=== PATIENT | female | born 1995 | race Caucasian/White ===

== ENCOUNTER 2017-07-21 17:22 | Emergency (ER) | payer OTHER ==
[2017-07-21 17:22] VITALS: BMI 28.8
[2017-07-21 17:43] VITALS: O2SAT 100
[2017-07-21] MEDS ORDERED: Sodium Chloride 0.9% 1,000 ML IV ONE (18:31)
[2017-07-21 19:07] LABS: BASO % 0.4 % (0.0-2.0); EOS # 0.1 K/uL (0.0-0.7); EOS % 0.9 % (0.0-4.0); LYMPH # 2.9 K/uL (1.0-4.3); LYMPH % 28.4 % (20.0-40.0); MEAN CORPUSCULAR HEMOGLOBIN 30.3 pg (27.0-31.0); MEAN CORPUSCULAR HGB CONC 33.6 g/dL (33.0-37.0); MEAN PLATELET VOLUME 8.7 fL (7.2-11.7); MONO # 0.8 K/uL (0.0-0.8); MONO % 8.1 % (0.0-10.0); RED CELL DISTRIBUTION WIDTH 14.3 % (11.5-14.5)
[2017-07-21] MEDS ORDERED: Sodium Chloride 0.9% 1,000 ML ONE (19:10)
[2017-07-21 19:16] LABS: CHLORIDE 99 mmol/L (98-107); MEAN CELL VOLUME 90.2 fL (81.0-99.0); SODIUM 134 mmol/L (132-148); WHITE BLOOD COUNT 10.2 K/uL (4.8-10.8)
[2017-07-21 19:17] LABS: POTASSIUM 3.9 mmol/L (3.6-5.2)
[2017-07-21 19:18] LABS: GFR AFRICAN-AMERICAN > 60
[2017-07-21 19:19] LABS: ALB/GLOB RATIO 1.2 (1.0-2.1); ALKALINE PHOSPHATASE 70 U/L (38-126); ALT/SGPT 27 U/L (9-52); AST/SGOT 16 U/L (14-36); BILIRUBIN,TOTAL 0.4 mg/dL (0.2-1.3); BLOOD UREA NITROGEN 15 mg/dL (7-17); CARBON DIOXIDE 20 mmol/L (22-30); GLUCOSE,RANDOM 68 mg/dL (65-105); TOTAL PROTEIN 7.2 g/dL (6.3-8.3)
[2017-07-21 19:20] LABS: CALCIUM 10.3 mg/dl (8.6-10.4)
[2017-07-21 19:38] LABS: RBC URINE 4 /hpf (0-3); URINE BACTERIA FEW (<OCC); URINE BILIRUBIN NEGATIVE (NEGATIVE); URINE BLOOD NEGATIVE (NEGATIVE); URINE COLOR Yellow (YELLOW); URINE GLUCOSE (UA) NORMAL (Normal); URINE KETONE TRACE mg/dL (NEGATIVE); URINE LEUKOCYTE ESTERASE 3+ Leu/uL (Negative); URINE PROTEIN NEGATIVE (NEGATIVE); URINE UROBILINOGEN NORMAL mg/dL (0.2-1.0); WBC URINE 57 /hpf (0-5)
--- NOTE | 2017-07-21 22:37 | C.PDOC ---
Time Seen by Provider: 07/21/17 18:21 Chief Complaint (Nursing): Female Genitourinary History Per: Patient Onset/Duration Of Symptoms: Days Current Symptoms Are (Timing): Still Present Severity: Moderate Quality Of Discomfort: Cramping, "Pain" Alleviating Factors: None Additional History Per: Prior Records Abnormal Vaginal Bleeding: Yes Past Medical History Reviewed: Historical Data, Nursing Documentation, Vital Signs Vital Signs: Last Vital Signs Temp 97.8 F 07/21/17 21:16 Pulse 75 07/21/17 21:16 Resp 18 07/21/17 21:16 BP 107/62 07/21/17 21:16 Pulse Ox 100 07/21/17 21:16 - Medical History PMH: No Chronic Diseases - [facility] Procedures DELIVERY OF PRODUCTS OF CONCEPTION, EXTERNAL APPROACH (09/25/16) Family History: States: Unknown Family Hx - Social History Hx Tobacco Use: No Hx Alcohol Use: No Hx Substance Use: No - Immunization History Hx Tetanus Toxoid Vaccination: Yes Hx Influenza Vaccination: Yes Hx Pneumococcal Vaccination: Yes Review Of Systems Except As Marked, All Systems Reviewed And Found Negative. Constitutional: Positive for: Malaise. Negative for: Fever Cardiovascular: Negative for: Chest Pain Respiratory: Negative for: Shortness of Breath Gastrointestinal: Negative for: Vomiting Genitourinary: Positive for: Vaginal Bleeding Musculoskeletal: Negative for: Neck Pain Skin: Negative for: Rash Neurological: Negative for: Weakness, Numbness Physical Exam - Physical Exam Appears: Non-toxic, No Acute Distress Skin: Normal Color, Warm, Dry, No Rash Head: Atraumatic, Normacephalic Eye(s): bilateral: Normal Inspection, PERRL, EOMI Neck: Normal ROM, Supple Cardiovascular: Rhythm Regular Respiratory: Normal Breath Sounds, No Accessory Muscle Use Gastrointestinal/Abdominal: Soft, Tenderness (mild suprapubic), No Guarding, No Rebound Back: No CVA Tenderness Extremity: Normal ROM Neurological/Psych: Oriented x3, Normal Motor, Normal Sensation ED Course And Treatment - Laboratory Results Result Diagrams: 07/21/17 19:02 07/21/17 19:02 Interpretation Of Abnormal: Probable UTI. Urine POC: Positive O2 Sat by Pulse Oximetry: 100 Pulse Ox Interpretation: Normal - CT Scan/US Pelvic US Other Rad Studies (CT/US): Read By Radiologist, Radiology Report Reviewed CT/US Interpretation: Single live IUP. Reassessment Condition: Improved Disposition Counseled Patient/Family Regarding: Studies Performed, Diagnosis, Need For Followup, Rx Given - Disposition Referrals: Alex Roca MD [Staff Provider] - Disposition: HOME/ ROUTINE Disposition Time: 22:36 Condition: STABLE Additional Instructions: Drink plenty of fluids. Follow up with your [facility] doctor this week for further evaluation and treatment. Return to the ER if you develop fever, back pain, worsening of symptoms or if you have any other concerns. Prescriptions: Nitrofurantoin Macrocrystals [Macrobid] 1 cap PO BID #14 cap Instructions: Urinary Tract Infection in (ED), Threatened Miscarriage (ED) Forms: [employer] ([place]se) Print Language: ROMANSH - Clinical Impression Clinical Impression: Threatened in first trimester, UTI in
[2017-07-21 22:53] VITALS: BP 112/71; PULSE 79; RESP 16; TEMP 98
--- NOTE | 2017-07-22 10:28 | US ---
Indication: Pain and bleeding Comparison: 1st trimester ultrasound performed 02/27/16 Technique: Real-time transabdominal pelvic ultrasound was performed. In addition a transvaginal pelvic ultrasound was necessary to better depict pelvic anatomy. Findings: The uterus measures approximately 10.0 x 5.1 x 7.0 cm. Cervix length measures approximately 3.3 cm. There is a single intrauterine fetus present. 4 mm yolk sac. The gestational sac measures 2.5 cm and is compatible with a gestational age of 7 weeks 1 day. The crown-rump length measures 0.7 cm and is compatible with a gestational age of 6 weeks 4 days. There is heart motion which measured 127.0 BPM. The right ovary measures 2.7 x 1.7 x 2.0 cm. The left ovary measures 3.7 x 2.0 x 3.0 cm and contains 1.8 x 1.2 x 1.8 cm cyst. Blood flow was demonstrated to both ovaries. Impression: Live single intrauterine with estimated gestational age 7 weeks 1 day by gestational sac calculation and 6 weeks 4 days by crown-rump length calculation. heart rate 127.0 bpm. Advise an anomaly screen at 16-18 weeks gestational age Preliminary impression was provided by virtual radi[employer].
== END 2017-07-21 22:54 | disposition home or self-care (01) ==
LOC: C.ER 17:22
DX: O20.0 Threatened abortion (principal); O23.41 Unspecified infection of urinary tract in pregnancy, first trimester; Z3A.01 Less than 8 weeks gestation of pregnancy
CPT/HCPCS: 76805; 76817; 80053; 81001; 84702; 84703; 85025; 96361; 96374; 99285; J2765; J7040